=== PATIENT | male | born 2000 | race Caucasian/White ===

== ENCOUNTER 2020-10-16 23:43 | Emergency (ER) | payer SELFPAY ==
[2020-10-16 23:54] VITALS: BP 135/81; PULSE 82; RESP 18; TEMP 38.3; O2SAT 99; BMI 17.1
--- NOTE | 2020-10-17 00:24 | ED.EYEPROB ---
HPI - Eye Problem General Chief complaint: Eye Problems Stated complaint: EYE INFECTION Time Seen by Provider: 10/17/20 00:24 Source: patient Mode of arrival: ambulatory Limitations: no limitations History of Present Illness chief complaint: eye pain, eye redness and other (eye drainage) Onset (ago): day(s) (3) Onset description: gradual Duration: progressively worsening Location: both eyes Eye Symptoms: redness, pain and discharge (R eye only) Place: home Mechanism: other (states he rubbed dirt into them - he didn't wash his hands) Severity: severe If Pain, Quality: burning Associated symptoms: none Treatments Prior to Arrival: none Related Data Previous Rx's Medication Instructions Recorded doxycycline hyclate 100 mg PO BID 10 Days #20 cap 10/17/20 hydrocodone-acetaminophen 1 tab PO Q6H PRN #12 tab 10/17/20 ofloxacin 2 drp OPHTHALMIC (EYE) QID 10 Days 10/17/20 #10 ml Allergies Allergy/AdvReac Type Severity Reaction Status Date / Time No Known Allergies Allergy Unverified 07/01/20 19:45 [No Known Allergies*] Review of Systems Review of Systems: Constitutional : No Weight loss, No Fever, No Chills, No Fatigue, No Malaise ENT/Mouth : No sore throat, No Rhinorrhea Eyes: pos Eye Pain, pos Swelling, pos Redness, pos discharge Cardiovascular : No Chest Pain, No SOB, No Dyspnea on Exertion, No Orthopnea, No Edema, No Palpitations Respiratory : No Cough, No Sputum, No Wheezing Gastrointestinal : No Nausea, No Vomiting, No Diarrhea, No Constipation, No abdominal Pain, No Hematochezia, No Melena Genitourinary : No Dysuria, No Urinary Frequency, No Hematuria, Musculoskeletal : No joint pain, No Myalgias, No Joint Swelling Skin : No Skin Lesions, No rash Neuro : No Weakness, No Numbness, No Dizziness, No Headache Psych : No Anxiety/Panic, No Depression Heme/Lymph: No Bruising, No Bleeding,No Lymphadenopathy Endocrine : No Polyuria, No Polydipsia All other systems reviewed and are negative [facility] Past Medical History Attestation statement: The following information was validated with the patient. Medical History No active medical problems Social History Social History Alcohol intake: never Smoked in Last 30 Days: No Substance Use Type: Marijuana Advance Directives: No Advance Directives Information Provided: No Physical Exam Vital Signs: Vital Signs: Last Vital Signs Temp 100.9 F H 10/16/20 23:54 Pulse 82 10/16/20 23:54 Resp 18 10/16/20 23:54 BP 135/81 10/16/20 23:54 Pulse Ox 99 10/16/20 23:54 Body Mass Index 17.1 Appearance: Alert. Oriented X3. No acute distress. Anxious in pain Eyes: Pupils equal, round and reactive to light. R eye purulent copious drainage, injected conjunctiva and moderate chemosis - vision intact, L eye injected conjunctiva/mild chemosis, no exudate ENT: Pharynx normal. Neck: Normal inspection. Neck supple. CVS: Normal heart rate and rhythm. Pulses normal. Respiratory: No respiratory distress. Breath sounds normal. Abdomen: Soft and nontender. Skin: Skin warm and dry. Normal skin color. Normal skin turgor. Extremities: No lower extremity edema. No calf ttp Neuro: Oriented X 3. No motor deficit. No sensory deficit. Course Course Course Narrative: pending gram stain will DC once results returned - signed out to Dr. Yun [facility] - Eye Problem MDM Narrative Medical decision making narrative: 19 yo male with bilateral bacterial conjunctivitis worsening over 3 days, does not wear contacts, he has a slight fever which seems atypical for conjunctivitis, given the presentation will obtain gram stain and G+C testing, he denies vision changes and will test for COVID and start on eye drops and oral antibiotics after dose of IV Ceftriaxone, dispo per results and workup Discharge Plan Discharge Clinical Impression: Bacterial conjunctivitis Additional Instructions: return to ED for any worsening symptoms or concerns YOU NEED TO FOLLOW UP WITH AN EYE DOCTOR SOON POSSIBLE Prescriptions: New doxycycline hyclate 100 mg capsule 100 mg PO BID 10 Days Qty: 20 RF: 0 ofloxacin 0.3 % drops 2 drp ophthalmic (eye) QID 10 Days Qty: 10 RF: 0 hydrocodone-acetaminophen 5-325 mg tablet 1 tab PO Q6H PRN (Reason: pain) Qty: 12 RF: 0 Referrals: Fredy Tineo [Physician] - 2 days Stand Alone Forms: Work/School Release
[2020-10-17 02:00] VITALS: BP 127/85; PULSE 78; RESP 16; TEMP 36.7; O2SAT 100
[2020-10-17 02:03] LABS: COVID-19 Test Negative (Negative)
[2020-10-17] MEDS: cefTRIAXone sodium 1 GM in 0.9 % Sodium Chloride 50 ML IV (02:32)
[2020-10-17] MEDS: Ibuprofen 600 MG TABLET PO (02:32)
[2020-10-17] MEDS: Erythromycin Base 0.5% Oph Oin 1 GM TUBE 1 CM EYE-BOTH (02:33)
[2020-10-17] MEDS: HYDROcodone Bit/Acetam 5/325 TABLET 1 TAB PO (02:33)
== END 2020-10-17 03:24 | disposition home or self-care (01) ==
PROVIDERS: Emergency Provider Emergency Medicine
DX: H10.33 Unspecified acute conjunctivitis, bilateral (principal); H57.13 Ocular pain, bilateral; Z20.822 Contact with and (suspected) exposure to COVID-19; Z79.899 Other long term (current) drug therapy
CPT/HCPCS: 87071; 87077; 87205; 87491; 87591; 87635; 96365; 96372; 99284; J0696